=== PATIENT | male | born 1965 | race Caucasian/White ===

== ENCOUNTER 2018-10-21 16:07 | Emergency (ER) | payer OTHER ==
[~2018-10-21] VITALS: Ht 165.1 cm; Wt 81.8 kg
[2018-10-21] MEDS ORDERED: LOSA50TA64 PO (16:18)
[2018-10-21] MEDS ORDERED: AMOX125T PO (16:18)
[2018-10-21] MEDS ORDERED: AMOX250C4 PO (16:21)
[2018-10-21] MEDS ORDERED: GuaiFENesin/D-METHORPHAN [SUGAR-FREE] 200-20MG/10 ML SYRUP UDCUP PO ONE (18:15)
[2018-10-21 18:58] LABS: INFLUENZA TYPE A NEGATIVE FOR TYPE A (NEGATIVE); INFLUENZA TYPE B NEGATIVE FOR TYPE B (NEGATIVE)
[2018-10-21] MEDS ORDERED: ACETAMINOPHEN 500 MG TABLET PO ONE (19:30)
[2018-10-21] MEDS ORDERED: IBUPROFEN 800 MG TABLET PO ONE (19:30)
[2018-10-21 20:45] VITALS: BP 108/73
== END 2018-10-21 21:35 | disposition home or self-care (01) ==
LOC: EMS 16:09
DX: J06.9 Acute upper respiratory infection, unspecified (principal); B34.9 Viral infection, unspecified; M79.10 Myalgia, unspecified site; I10 Essential (primary) hypertension
CPT/HCPCS: 87804